=== PATIENT | female | born 1995 | race Caucasian/White ===

== ENCOUNTER 2017-08-21 16:18 | Emergency (ER) | payer OTHER ==
[~2017-08-21] VITALS: Ht 162.6 cm; Wt 61.9 kg
[2017-08-21] MEDS ORDERED: ONDANSETRON ODT 4 MG ONE (16:35)
[2017-08-21] MEDS ORDERED: SODIUM CHLORIDE 0.9% 1,000ML IVBOLUS ONE (17:00)
[2017-08-21] MEDS ORDERED: ONDANSETRON ODT 4 MG PO ONE (17:00)
[2017-08-21 17:09] LABS: MEAN CORPUSCULAR HGB CONC 33.5 g/dL (32.4-35.8); RED BLOOD COUNT 5.09 x10^6/uL (3.82-5.3)
[2017-08-21 17:20] LABS: BASOPHILS # (AUTO) 0.05 x10^3/uL (0-0.3); BASOPHILS % (AUTO) 0 % (0-1); EOSINOPHILS # (AUTO) 0.64 x10^3/uL (0-0.8); EOSINOPHILS % (AUTO) 6 % (1-7); LYMPHOCYTES # (AUTO) 1.94 x10^3/uL (1-6.1); LYMPHOCYTES % (AUTO) 17 % (22-44); MD NO; MEAN CORPUSCULAR HEMOGLOBIN 30.2 pg (27.0-34.8); MEAN CORPUSCULAR VOLUME 90.2 fL (80-100); MONOCYTES % (AUTO) 7 % (2-9); NEUTROPHILS # (AUTO) 7.97 x10^3/uL (1.8-8.0); NEUTROPHILS % (AUTO) 70 % (42-75); PLATELET COUNT 262 x10^3/uL (130-400); RED CELL DISTRIBUTION WIDTH 12.6 % (9.6-15.2)
[2017-08-21 17:37] LABS: ALANINE AMINOTRANSFERASE 21 U/L (12-78); ALBUMIN 4.3 g/dL (3.4-5.0); ANION GAP 11 mmol/L (5-15); CALCIUM 9.7 mg/dL (8.5-10.1); CHLORIDE 106 mmol/L (98-107); CREATININE 1.18 mg/dL (0.55-1.02)
[2017-08-21 17:39] LABS: ALKALINE PHOSPHATASE 59 U/L (45-117); BILIRUBIN,TOTAL 0.5 mg/dL (0.2-1.0); TOTAL PROTEIN 8.4 g/dL (6.4-8.2)
[2017-08-21 18:22] LABS: HCG UR SG 1.025 (1.003-1.030)
[2017-08-21 18:26] LABS: MICROSCOPIC INDICATED
[2017-08-21 18:28] LABS: CULTURE INDICATED? YES
[2017-08-21] MEDS ORDERED: PROMETHAZINE 25 MG/ML, 1ML ONE (19:19)
[2017-08-21] MEDS ORDERED: PROMETHAZINE 25 MG/ML, 1ML IM ONE (19:30)
[2017-08-21 21:12] VITALS: BP 90/43
== END 2017-08-21 21:53 | disposition home or self-care (01) ==
LOC: ED 21:47
DX: R11.2 Nausea with vomiting, unspecified (principal); E86.0 Dehydration; F31.9 Bipolar disorder, unspecified; J45.909 Unspecified asthma, uncomplicated
CPT/HCPCS: 36415; 80053; 81001; 81025; 83690; 85025; 87086; 96360; 96372; 99284; J2550; J7030; Q0162; 87147

== ENCOUNTER → 2017-10-13 | Outpatient (CLI) | payer OTHER ==
[~2017-10-13] MED LIST: ALBU8.5H8 INH; BECL8.7A7 INH; MONT10TA6 PO; RANI150T23 PO; SERT50TA PO; TIOT18CA INH; [UNRECOGNIZED DRUG - OTHER] PO; birth control PO
== END | disposition home or self-care (01) ==
LOC: CFH 13:40
PROVIDERS: ATTEND Internal Medicine
DX: J45.40 Moderate persistent asthma, uncomplicated (principal)
CPT/HCPCS: 71250

== ENCOUNTER → 2018-03-06 | Outpatient (CLI) | payer OTHER | END | disposition home or self-care (01) | LOC: RAD 10:41 | PROVIDERS: ATTEND Nurse Practitioner | DX: M79.671 Pain in right foot (principal) ==

== ENCOUNTER → 2018-03-21 | Outpatient (CLI) | payer OTHER | END | disposition home or self-care (01) | LOC: CFH 08:20 | PROVIDERS: ATTEND Allergy & Immunology Allergy | DX: J32.0 Chronic maxillary sinusitis (principal); J34.2 Deviated nasal septum | CPT/HCPCS: 70486 ==

== ENCOUNTER 2019-04-10 21:14 | Emergency (ER) | payer OTHER ==
[~2019-04-10] VITALS: Ht 165.1 cm; Wt 80.0 kg
[~2019-04-10 21:14] MED LIST changes: +RANI-467 PO; -RANI150T23 PO
--- NOTE | 2019-04-10 21:30 | NUR ---
REPORT RECEIVED FROM [facility], SEE TRIAGE. CLOTHING PLACED IN TWO BELONGING BAGS AND TO LOCKER. URINE COLLECTED/SENT TO LAB. PT UPDATED ON POC. SITTER AT DOORWAY.
--- NOTE | 2019-04-10 21:47 | NUR ---
REPORT RECEIVED FROM MARLENA DHILLON. ASSUMED CARE OF PT. PT REFUSING LABS AT THIS TIME. WILL MAKE ERP AWARE.
[2019-04-10] MEDS ORDERED: LORazepam 1MG TABLET PO ONE (22:00)
--- NOTE | 2019-04-10 22:01 | NUR ---
PT CRYING EXCESSIVELY NOT WANTING TO GET LABS DRAWN STATING "IT'S SO SCARY, IT'S GOING TO HURT SO BAD, I DON'T WANT TO DO IT". DR. SARMIENTO ALSO AT BEDSIDE EDUCATING PATIENT ON THE NEED FOR THE LABS. PT STILL ADAMANTLY REFUSING LABS. PT ALSO OFFERED MEDICATION TO ASSIST WITH HER ANXIETY, WHICH SHE ALSO ADAMANTLY DENIES. SHE STATES "I DON'T WANT HELP, I CAN TAKE CARE OF MYSELF, I'VE BEEN DOING THIS FOR THE PAST 7 YEARS ALONE". PT NOT COOPERATIVE AT SPEAKING WITH THIS RN OR DR. SARMIENTO.
[2019-04-10 22:02] LABS: AMPHETAMINE SCREEN, URINE Negative (Negative); BARBITURATE SCREEN, URINE Negative (Negative); BENZODIAZEPINE SCREEN, URINE Negative (Negative); CANNABINOID SCREEN, URINE Positive (Negative); COCAINE SCREEN, URINE Negative (Negative); METHADONE SCREEN, URINE Negative (Negative); OPIATE SCREEN, URINE Negative (Negative)
[2019-04-10] MEDS ORDERED: ADDERALL (22:04)
--- NOTE | 2019-04-10 22:37 | NUR ---
PT SLEEPING ON GURNEY. WARM BLANKETS AND PILLOW PROVIDED.
--- NOTE | 2019-04-10 23:19 | NUR ---
Patient resting in bed. Recieved report. Patient has calmed down since becoming hysterical over phlebotomists attempts to collect a lab sample. Patient still refusing anxiolytics. Plan is attempt to adminster anxiolytic once patient is agreeable to obtain lab sample.
--- NOTE | 2019-04-11 00:09 | NUR ---
Note edi in ED - 04/11/19 at 0011 by SAMI BREAK RN: PT NEIL IN BED CRYING AND SCREAMING. SITTER AT DOOR ABLE TO SOOTHE PT. PT NOW RESTING IN BED CALMLY.
--- NOTE | 2019-04-11 00:11 | NUR ---
BREAK RN: PT NEIL IN BED CRYING AND SCREAMING. SITTER AT DOOR ABLE TO SOOTHE PT. PT NOW RESTING IN BED CALMLY.
[2019-04-11] MEDS ORDERED: LORazepam 1MG TABLET ONE ×2 (01:19→09:54)
--- NOTE | 2019-04-11 01:21 | NUR ---
PT NOW AGREEABLE TO ATIVAN. PT MEDICATED PER MAR. POC DISCUSSED. PT CONTINUES TO REFUSE LAB DRAW. PT WAS INFORMED WE CAN DRAW THE LABS WITH AN ULTRASOUND IV. PT AGREEABLE TO THIS.
--- NOTE | 2019-04-11 01:52 | NUR ---
PT REMAINS ANXIOUS. COMFORT MEASURES APPLIED. REASSURANCE GIVEN. BLOOD DRAW WAS EXPLAINED TO PT IN DEPTH. PT AGAIN AGREED TO ALLOW THIS RN TO DRAW BLOOD. SITTERX2 WITNESSES PT AGREE TO THIS. BLOOD DRAWN WITH EASE ON FIRST ATTEMPT. AFTERWARDS PT APOLOGETIC AND STATES THEY NORMALLY HAVE TO "DIG FOR MY VEINS AND POKE ME AT LEASE 4 TIMES". PT STATES THIS WAY WAS MUCH BETTER. POC DISCUSSED. BLOOD TUBED TO LAB. PT DENIES FURTHER NEEDS AT THIS TIME. SITTER REMAINS IN PLACE.
[2019-04-11 02:02] LABS: BASOPHILS # (AUTO) 0.02 x10^3/uL (0-0.1); BASOPHILS % (AUTO) 0 % (0-1); EOSINOPHILS % (AUTO) 0 % (1-7); LYMPHOCYTES # (AUTO) 2.19 x10^3/uL (1-3.4); LYMPHOCYTES % (AUTO) 20 % (22-44); MD NO; MEAN CORPUSCULAR HEMOGLOBIN 30.7 pg (27.0-34.8); MEAN CORPUSCULAR HGB CONC 33.6 g/dL (32.4-35.8); MEAN CORPUSCULAR VOLUME 91.4 fL (80-100); MEAN PLATELET VOLUME 8.5 fL (7.4-10.4); MONOCYTES # (AUTO) 0.85 x10^3/uL (0.2-0.8); MONOCYTES % (AUTO) 8 % (2-9); NEUTROPHILS # (AUTO) 8.02 x10^3/uL (1.8-6.8); NEUTROPHILS % (AUTO) 72 % (42-75); PLATELET COUNT 317 x10^3/uL (130-400); RED BLOOD COUNT 4.42 x10^6/uL (3.82-5.3); RED CELL DISTRIBUTION WIDTH 13.5 % (9.6-15.2)
[2019-04-11 02:09] LABS: ALBUMIN 3.3 g/dL (3.4-5.0); ANION GAP 6 mmol/L (5-15); CALCIUM 8.8 mg/dL (8.5-10.1); CHLORIDE 112 mmol/L (98-107); CREATININE 0.83 mg/dL (0.55-1.02)
[2019-04-11 02:11] LABS: SALICYLATE LEVEL < 1.7 mg/dL (2.8-20.0)
--- NOTE | 2019-04-11 02:36 | NUR ---
PT MEDICALLY CLEARED BY ER MD. REFERRAL PACKET FAXED TO [facility].
--- NOTE | 2019-04-11 02:42 | NUR ---
CONFIRMATION FAX RECEIVED AND PLACED IN CHART.
--- NOTE | 2019-04-11 03:01 | NUR ---
SPOKE WITH TRAE MENDIOLA AT [facility]. THEY WILL ACCEPT THE PATIENT AND REQUEST SHE ARRIVE AT 0500. REPORT GIVEN TO TRAE. DR LEBRON ACCEPTING.
--- NOTE | 2019-04-11 04:23 | NUR ---
TRANSPORT SET UP THROUGH [facility]. ETA [id number]
--- NOTE | 2019-04-11 04:24 | NUR ---
PT SLEEPING. NAD. SITTER IN PLACE.
[2019-04-11] MEDS ORDERED: ZIPRASIDONE 20 MG INJ IM ONE ×2 (05:29→05:30)
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
--- NOTE | 2019-04-11 05:44 | NUR ---
RESTRAINT FORM SIGNED BY LOYD LEES AND THIS RN. PT IN [place] ROOM. SITTER IN PLACE.
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
--- NOTE | 2019-04-11 06:18 | NUR ---
PTS MOTHER CALLED INQUIRING ABOUT THE PT. PT HAD PREVIOUSLY INFORMED THIS RN SHE DOES NOT WANT HER MOTHER KNOWING ABOUT PTS PLAN TO GO TO [place]. PTS MOTHER WAS INFORMED WITHOUT THE PTS APPROVAL WE CANNOT DISCLOSE THE PTS CONDITION AT THIS TIME HOWEVER IF SHE CALLS BACK LATER IN THE DAY AND THE PT AGREES WITH CAN INFORM HER OF THE PTS CONDITION.
--- NOTE | 2019-04-11 06:31 | NUR ---
PT NOW IN TWO POINT RESTRAINTS DESPITE HER SAYING "NO THANK YOU" TO REMOVING THEM.
--- NOTE | 2019-04-11 06:42 | NUR ---
PT REMOVED FROM ALL RESTRAINTS AT THIS TIME. PT CONTINUES TO REFUSE VITALS AND EKG.
--- NOTE | 2019-04-11 06:57 | NUR ---
RECEIVED REPORT FROM TONI. PT SLEEPING ON GURNEY CALMLY, NAD WITH EQUAL CHEST RISE/FALL, NO NEEDS AT THIS TIME, PT REMAINS IN SAFE ENVIRONMENT, SITTER IN VIEW.
--- NOTE | 2019-04-11 08:00 | NUR ---
SBAR RPT REC'D FROM MARLENA PALUMBO. PT ON GURNEY, SLEEPING, RESP EVEN NON-LABORED. SITTER AT DOORWAY. ONLY ONE GARAGE DOOR IS DOWN. WHEN PT ARROUSES I WILL CLOSE DOOR.
--- NOTE | 2019-04-11 08:14 | NUR ---
REPORT GIVEN TO LINA
--- NOTE | 2019-04-11 09:00 | NUR ---
PT ARROUSES TO RN VOICE, NO EYE CONTACT BUT COOPERATIVE IN RN OBTAINING VS AND ASSESSMENT. PT NOT COOPERATIVE IN ANSWERING ANY QUESTIONS AND DECLINES BREAKFAST TRAY STATING "I DON'T FEEL LIKE EATING"
[2019-04-11] MEDS ORDERED: LORazepam 1MG TABLET PO ONE (10:00)
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
--- NOTE | 2019-04-11 11:00 | NUR ---
REPORT RC'VD FROM LINA MENDIOLA. PT RESTING IN BED AT THIS TIME, BREATHING WNL. SITTER OUTSIDE ROOM.
--- NOTE | 2019-04-11 11:30 | NUR ---
PT'S MOTHER VISITING AT THIS TIME. PT DENIES NEEDS. CALM, COOPERATIVE AT THIS TIME.
--- NOTE | 2019-04-11 12:29 | NUR ---
PT'S MOTHER BROUGHT HER LUNCH. PT DECLINED HOSPITAL LUNCH TRAY. PT CALM, COOPERATIVE. HOME MED LIST UPDATED.
[2019-04-11] MEDS ORDERED: AMIT10TA PO (13:40)
[2019-04-11] MEDS ORDERED: CETI-158 PO (13:40)
[2019-04-11] MEDS ORDERED: CARI3CAP PO (13:42)
[2019-04-11] MEDS ORDERED: MONT10TA6 PO (13:42)
[2019-04-11] MEDS ORDERED: RANI-467 PO (13:43)
--- NOTE | 2019-04-11 13:46 | NUR ---
REPORTED TO [facility].
[2019-04-11] MEDS ORDERED: AMPH20TA2 PO (13:48)
--- NOTE | 2019-04-11 15:33 | NUR ---
THROUGHPUT: [facility] OK TO TRANSFER PT WHEN ABLE TO SET UP TRANSPORT.
--- NOTE | 2019-04-11 15:41 | NUR ---
THROUGHPUT: [facility] TO TRANSPORT PT TO [facility] ~1615 TODAY- PRIMARY & POWER TONG OPERATOR AWARE.
[2019-04-11 15:53] VITALS: BP 108/65
--- NOTE | 2019-04-11 16:30 | NUR ---
[place] [facility] [facility]. MOTHER STILL PRESENT AT BS. TWO BAGS OF BELONGINGS SENT WITH PT.
== END 2019-04-11 16:32 ==
LOC: ED 21:38
DX: R45.851 Suicidal ideations (principal); J45.909 Unspecified asthma, uncomplicated; F32.9 Major depressive disorder, single episode, unspecified
CPT/HCPCS: 36415; 80048; 80307; 82040; 84703; 85025; 96372; 99285; J3486